=== PATIENT | female | born 1965 | race American Indian/Alaskan Native ===

== ENCOUNTER 2018-04-08 16:00 | Emergency (ER) | payer OTHER ==
[2018-04-08] MEDS ORDERED: ZOFRAN IM ONE (17:37)
[2018-04-08] MEDS ORDERED: DILAUDID IM ONE (17:37)
--- NOTE | 2018-04-08 17:41 | Emergency Department Report ---
HPI - General Chief Complaint: Hyperglycemia Time Seen by Provider: 04/08/18 17:19 - HPI HPI: Room 1 The patient is a 52-year-old female presenting with a chief complaint of neck pain. The patient states she has a history of chronic neck pain being diagnosed with bulging cervical disks and cervical stenosis. The patient states her pain is daily but today seemed worse prompting her to come to the ED. Patient complains of right paraspinous neck pain radiating to the right shoulder. The patient also admits to frequent falls since 2017. The patient states she fell one week ago landing on her left side. The patient states the only thing that helps her pain is Dilaudid Location: [See above] Duration: [See above] Quality: Pain Severity: 05/13 Modifying factors: [see above] Context: [see above] Mode of transportation: [not driving] ED Past Medical Hx - Past Medical History Previous Medical History?: Yes Hx Diabetes: Yes Hx Arthritis: Yes Additional medical history: spinal stenosis. hyperthyroid/hypothyroid. chronic back pain - Surgical History Past Surgical History?: Yes Hx Appendectomy: Yes Additional Surgical History: broken ankle. multiple hernia repairs. small bowel obstruction. . eye surgery - Family History Family history: no significant - Social History Smoking Status: Never Smoker Substance Use Type: None (denies illicit drug use) - Medications Home Medications: Home Medications Medication Instructions Recorded Confirmed Last Taken Type HYDROcodone/APAP 5-325 [Mcdonald 1 - 2 each PO Q6HR PRN #14 tablet 04/08/18 Unknown Rx 5/325] Ibuprofen [Motrin 800 MG tab] 800 mg PO Q8HR PRN #20 tablet 04/08/18 Unknown Rx ED Review of Systems ROS: Stated complaint: HIGH BLOOD SUGAR Other details as noted in HPI Constitutional: no symptoms reported Eyes: other (left periorbital pain) ENT: denies: throat pain Respiratory: no symptoms reported Cardiovascular: denies: chest pain Endocrine: increased urine Gastrointestinal: denies: abdominal pain Genitourinary: denies: dysuria Musculoskeletal: arthralgia, myalgia Neurological: headache Physical Exam - Physical Exam Vital Signs: Vital Signs 04/08/18 17:10 Temperature 98.5 F Pulse Rate 97 H Respiratory 18 Rate Blood Pressure 146/93 O2 Sat by Pulse 97 Oximetry Physical Exam: GENERAL: The patient is well-developed well-nourished female sitting on stretcher not appearing to be in acute distress. [] HEENT: Normocephalic. Left periorbital ecchymosis. Extraocular motions are intact. Patient has moist mucous membranes. NECK: Supple. Right paraspinous tenderness. No axial step-offs CHEST/LUNGS: Clear to auscultation. There is no respiratory distress noted. HEART/CARDIOVASCULAR: Regular. There is no tachycardia. There is no gallop rub or murmur. ABDOMEN: Abdomen is soft, nontender. Patient has normal bowel sounds. There is no abdominal distention. SKIN: There is no rash. There is no edema. There is no diaphoresis. NEURO: The patient is awake, alert, and oriented. The patient is cooperative. The patient has no focal neurologic deficits. The patient has normal speech. Cranial nerves II through XII grossly intact, no drift MUSCULOSKELETAL: There is no limitation range of motion. ED Course Vital Signs 04/08/18 17:10 Temperature 98.5 F Pulse Rate 97 H Respiratory 18 Rate Blood Pressure 146/93 O2 Sat by Pulse 97 Oximetry - Reevaluation(s) Reevaluation #1: 04/08/18 21:52 Informed by nursing Accu-Chek is currently 236 ED Medical Decision Making - Lab Data Result diagrams: 04/08/18 17:39 04/08/18 17:39 - Radiology Data Radiology results: report reviewed (CT head, CT cervical spine, CT facial bones) , image reviewed (CT head, CT cervical spine, CT facial bones) [facility] [address] [place] [address] Cat Scan Report Signed Patient: CHANI HARDY MR#: [id number] : 1965 Acct:[id number] Age/Sex: 52 / F ADM Date: 04/08/18 Loc: ED Attending Dr: Ordering Physician: AISSATOU SCHMIDT MD Date of Service: 04/08/18 Procedure(s): CT cervical spine wo con Accession Number(s): [id number] cc: AISSATOU SCHMIDT MD FINAL REPORT EXAM: CT CERVICAL SPINE WO CON HISTORY: pain after fall TECHNIQUE: CT cervical spine with reconstructions PRIORS: None. FINDINGS: Vertebral bodies demonstrate normal height and alignment. There is marked disc space narrowing C3-C4 and C4-C5. The facet joints demonstrate normal alignment. The spinous processes are intact. Craniocervical junction is unremarkable. C1 and C2 are intact. IMPRESSION: Degenerative disc disease at C3-C4 and C4-C5 Transcribed By: VIRGIE Dictated By: MARIA DEL CARMEN VOSS MD Electronically Authenticated By: MARIA DEL CARMEN VOSS MD Signed Date/Time: 04/08/181849 DD/ 49 TD/TT: 04/08/181849 [address] [address] Cat Scan Report Signed Patient: CHANI HARDY MR#: [id number] : 1965 Acct:[id number] Age/Sex: 52 / F ADM Date: 04/08/18 Loc: ED Attending Dr: Ordering Physician: AISSATOU SCHMIDT MD Date of Service: 04/08/18 Procedure(s): CT head/brain wo con Accession Number(s): [id number] cc: AISSATOU SCHMIDT MD FINAL REPORT EXAM: CT HEAD/BRAIN WO CON HISTORY: pain after fall TECHNIQUE: CT head without contrast PRIORS: None. FINDINGS: No acute intra-axial or extra-axial hemorrhage is identified. There is no evidence of midline shift or mass effect. The ventricles and sulci are within normal limits. Nation-white matter differentiation is intact. No acute parenchymal abnormalities seen. Bony calvarium is grossly intact. Visualized portions of the mastoids and paranasal sinuses are unremarkable. IMPRESSION: Negative CT head Transcribed By: VIRGIE Dictated By: MARIA DEL CARMEN VOSS MD Electronically Authenticated By: MARIA DEL CARMEN VOSS MD Signed Date/Time: 04/08/181832 DD/ 32 TD/TT: 04/08/1818[address] [address] Cat Scan Report Signed Patient: CHANI HARDY MR#: [id number] : 1965 Acct:[id number] Age/Sex: 52 / F ADM Date: 04/08/18 Loc: ED Attending Dr: Ordering Physician: AISSATOU SCHMIDT MD Date of Service: 04/08/18 Procedure(s): CT facial bones wo con Accession Number(s): [id number] cc: AISSATOU SCHMIDT MD FINAL REPORT PROCEDURE: CT FACIAL BONES WO CON TECHNIQUE: Computerized tomography of the facial bones and soft tissues with axial and coronal sections performed from the cranial aspect of the frontal sinuses to the caudal portion of the mandible without contrast material. HISTORY: pain after fall COMPARISON: No prior studies are available for comparison. FINDINGS: The temporomandibular joints are intact. No acute fracture is seen. There is left maxillary sinus mucosal thickening. Evidence of periodontal disease. Lacrimal glands bilaterally appear mildly prominent. IMPRESSION: No fracture is identified Transcribed By: [facility] Dictated By: ANJELICA CREWS M.D. Electronically Authenticated By: ANJELICA CREWS M.D. Signed Date/Time: 04/08/181904 DD/ 04 TD/TT: 04/08/181904 - Differential Diagnosis closed head injury, ICH, cervical fracture, cervical strain, chronic pain Critical care attestation.: If time is entered above; I have spent that time in minutes in the direct care of this critically ill patient, excluding procedure time. ED Disposition Clinical Impression: Closed head injury, Neck pain, Hyperglycemia Disposition: - TO HOME OR SELFCARE Is pt being admited?: No Does the pt Need Aspirin: No Condition: Stable Instructions: Cervical Radiculopathy (ED) Additional Instructions: Return to the emergency department immediately should you develop worsening symptoms, fever, inability to tolerate food or liquid or any other concerns. Prescriptions: HYDROcodone/APAP 5-325 [Mcdonald 5/325] 1 - 2 each PO Q6HR PRN #14 tablet PRN Reason: Pain Ibuprofen [Motrin 800 MG tab] 800 mg PO Q8HR PRN #20 tablet PRN Reason: Pain, Moderate (4-6) Referrals: PRIMARY CARE, [Primary Care Provider] - 3-5 Days AMY KATZ MD [Staff Physician] - 3-5 Days (Dr. Katz is an orthopedic surgeon. Please follow up with him for further evaluation of your neck pain) JIM CASTRO MD [Staff Physician] - 3-5 Days (Dr. Castro is a neurologist. Please follow up with him for further evaluation) Time of Disposition: 21:52
[2018-04-08] MEDS ORDERED: ZOFRAN IV ONE (17:56)
[2018-04-08 17:58] LABS: Basophils % (Auto) 0.7 % (0.0-1.8); Eosinophils % (Auto) 0.4 % (0.0-4.3); Hematocrit 32.7 % (30.3-42.9); Hemoglobin 10.1 gm/dl (10.1-14.3); Lymphocytes # (Auto) 0.8 K/mm3 (1.2-5.4); Lymphocytes % (Auto) 12.5 % (13.4-35.0); Mean Corpuscular HGB Conc 31 % (30-34); Mean Corpuscular Volume 72 fl (79-97); Monocytes # (Auto) 0.2 K/mm3 (0.0-0.8); Monocytes % (Auto) 3.7 % (0.0-7.3); Platelet Count 345 K/mm3 (140-440); Red Blood Count 4.54 M/mm3 (3.65-5.03); Red Cell Distribution Width 17.1 % (13.2-15.2)
[2018-04-08 17:59] LABS: Mean Corpuscular Hemoglobin 22 pg (28-32)
[2018-04-08 18:12] LABS: BUN/Creatinine Ratio 23; Blood Urea Nitrogen 16 mg/dL (7-17); Calcium 8.5 mg/dL (8.4-10.2); Hemolysis Index 9
--- NOTE | 2018-04-08 18:34 | Cat Scan Report ---
FINAL REPORT EXAM: CT HEAD/BRAIN WO CON HISTORY: pain after fall TECHNIQUE: CT head without contrast PRIORS: None. FINDINGS: No acute intra-axial or extra-axial hemorrhage is identified. There is no evidence of midline shift or mass effect. The ventricles and sulci are within normal limits. Nation-white matter differentiation is intact. No acute parenchymal abnormalities seen. Bony calvarium is grossly intact. Visualized portions of the mastoids and paranasal sinuses are unremarkable. IMPRESSION: Negative CT head
[2018-04-08] MEDS ORDERED: HumuLIN R IV ONE ×3 (18:45→21:08)
--- NOTE | 2018-04-08 18:51 | Cat Scan Report ---
FINAL REPORT EXAM: CT CERVICAL SPINE WO CON HISTORY: pain after fall TECHNIQUE: CT cervical spine with reconstructions PRIORS: None. FINDINGS: Vertebral bodies demonstrate normal height and alignment. There is marked disc space narrowing C3-C4 and C4-C5. The facet joints demonstrate normal alignment. The spinous processes are intact. Craniocervical junction is unremarkable. C1 and C2 are intact. IMPRESSION: Degenerative disc disease at C3-C4 and C4-C5
--- NOTE | 2018-04-08 19:06 | Cat Scan Report ---
FINAL REPORT PROCEDURE: CT FACIAL BONES WO CON TECHNIQUE: Computerized tomography of the facial bones and soft tissues with axial and coronal sections performed from the cranial aspect of the frontal sinuses to the caudal portion of the mandible without contrast material. HISTORY: pain after fall COMPARISON: No prior studies are available for comparison. FINDINGS: The temporomandibular joints are intact. No acute fracture is seen. There is left maxillary sinus mucosal thickening. Evidence of periodontal disease. Lacrimal glands bilaterally appear mildly prominent. IMPRESSION: No fracture is identified
[2018-04-08] MEDS ORDERED: NACL 0.9% 1000 ML 1,000 ML IV ONE (19:58)
[2018-04-08 20:31] VITALS: BP 160/80
[2018-04-08] MEDS ORDERED: FIORICET PO ONE (20:51)
== END 2018-04-08 22:17 | disposition home or self-care (01) ==
LOC: ED 16:00
DX: S09.8XXA Other specified injuries of head, initial encounter (principal); M54.2 Cervicalgia; E11.65 Type 2 diabetes mellitus with hyperglycemia; M19.90 Unspecified osteoarthritis, unspecified site; G89.29 Other chronic pain; Z90.49 Acquired absence of other specified parts of digestive tract; W19.XXXA Unspecified fall, initial encounter; Z91.81 History of falling; Y93.89 Activity, other specified; Y99.8 Other external cause status; Y92.89 Other specified places as the place of occurrence of the external cause
CPT/HCPCS: 36415; 70450; 70486; 72125; 80048; 82805; 82962; 85025; 96372; 96374; 96375; 96376; 99285; J1170; J2405; J7030; J1815